=== PATIENT | female | born 1985 | race Caucasian/White ===

== ENCOUNTER 2017-06-25 16:37 | Emergency (ER) | payer MEDICARE ==
[~2017-06-25] VITALS: Ht 167.6 cm; Wt 81.6 kg
[2017-06-25 16:37] VITALS: BP_SYST 157
[2017-06-25] MEDS ORDERED: LIDOCAINE 1% 10 MG/ML, 20 ML MDV INJ ONE ×2 (19:45→20:15)
[2017-06-25] MEDS ORDERED: DIPH-TET-PERTUS Vaccine 0.5 ML VIAL (ADACEL) I.M. ONE (20:15)
[2017-06-25 20:20] VITALS: BP_SYST 144
== END 2017-06-25 20:20 | disposition home or self-care (01) ==
LOC: SED 16:37
DX: S61.411A Laceration without foreign body of right hand, initial encounter (principal); S61.214A Laceration without foreign body of right ring finger without damage to nail, initial encounter; S13.4XXA Sprain of ligaments of cervical spine, initial encounter; R51 Headache; R07.89 Other chest pain; I10 Essential (primary) hypertension; Z90.49 Acquired absence of other specified parts of digestive tract; V89.2XXA Person injured in unspecified motor-vehicle accident, traffic, initial encounter; Y93.89 Activity, other specified; Y92.488 Other paved roadways as the place of occurrence of the external cause; Y99.8 Other external cause status
CPT/HCPCS: 71250-TC; 72125-TC; 72128; 72131; 81025; 90715; 99284; 99285